=== PATIENT | male | born 1990 | race Caucasian/White ===

== ENCOUNTER 2019-09-10 00:21 | Emergency (ER) | payer OTHER ==
[~2019-09-10] VITALS: Ht 182.9 cm; Wt 86.2 kg
[~2019-09-10 00:21] MED LIST: ALBU90I INH; CEPH500 PO; CODACEE120 PO; CYCL10 PO; DICL.1SO OD; DIPATR PO; DOXY100 PO; HYDACE5 PO; IBUP800 PO; NAPR500 PO; ONDA4 PO; OXYC30 PO; PRED10 PO; PRED20 PO; PROM25 PO; PSEU120ER PO; Percocet 5-3251 EACH PO; RXTRAM50 PO; TOBR.3OPSO OP; TRAM50 PO; TYLENOL/MOTRIN PRN; Vibramycin100 MG PO
[2019-09-10] MEDS ORDERED: Bactrim Ds Tab1 EACH PO (00:59)
== END 2019-09-10 01:24 | disposition home or self-care (01) ==
LOC: ER 00:21
DX: H01.006 Unspecified blepharitis left eye, unspecified eyelid (principal); F17.210 Nicotine dependence, cigarettes, uncomplicated
CPT/HCPCS: 99283; A9270-GY

== ENCOUNTER 2020-01-05 19:10 | Emergency (ER) | payer OTHER ==
[~2020-01-05] VITALS: Ht 182.9 cm; Wt 83.9 kg
[~2020-01-05 19:10] MED LIST changes: +Bactrim Ds Tab1 EACH PO
== END 2020-01-05 19:35 | disposition home or self-care (01) ==
LOC: ER 19:10
DX: L23.7 Allergic contact dermatitis due to plants, except food (principal); F17.210 Nicotine dependence, cigarettes, uncomplicated
CPT/HCPCS: 96372; 99283-25; J3301

== ENCOUNTER 2020-02-14 23:40 | Emergency (ER) | payer OTHER ==
[~2020-02-14] VITALS: Ht 182.9 cm; Wt 83.9 kg
== END 2020-02-15 00:41 | disposition home or self-care (01) ==
LOC: ER 23:40
DX: S30.861A Insect bite (nonvenomous) of abdominal wall, initial encounter (principal); F17.200 Nicotine dependence, unspecified, uncomplicated; W57.XXXA Bitten or stung by nonvenomous insect and other nonvenomous arthropods, initial encounter
CPT/HCPCS: 99282

== ENCOUNTER 2021-10-01 06:57 | Emergency (ER) | payer OTHER ==
[~2021-10-01] VITALS: Ht 182.9 cm; Wt 88.5 kg
== END 2021-10-01 07:28 | disposition home or self-care (01) ==
LOC: ER 06:57
DX: L23.7 Allergic contact dermatitis due to plants, except food (principal); F17.210 Nicotine dependence, cigarettes, uncomplicated
CPT/HCPCS: 96372; 99283-25; J3301